=== PATIENT | female | born 2005 | race Two or more races ===

== ENCOUNTER 2024-05-18 20:14 | Emergency (ER) | payer OTHER ==
[~2024-05-18] VITALS: Ht 157.5 cm; Wt 110.2 kg
[2024-05-18] MEDS ORDERED: AZITHROMYCIN250 MG PO (21:53)
[2024-05-18] MEDS ORDERED: PEPCID20 MG PO (21:53)
[2024-05-18] MEDS ORDERED: MEDROLPACK PO (21:53)
[2024-05-18] MEDS ORDERED: ZOFRAN8 MG PO (21:53)
[2024-05-18] MEDS ORDERED: BUTALB/ACETAMINOPHEN/CAFFEINE 1 TAB TABLET PO ONE (22:00)
[2024-05-18] MEDS ORDERED: ONDANSETRON HCL 2 MG/ML VIAL IM ONE (22:00)
[2024-05-18] MEDS ORDERED: BENZONATATE 200 MG CAPSULE PO ONE (22:00)
== END 2024-05-18 22:18 | disposition home or self-care (01) ==
LOC: ER 20:16 → EMR PED 20:45 → ER 20:45
DX: J00 Acute nasopharyngitis [common cold] (principal)
CPT/HCPCS: 96372; 99282; J2405

== ENCOUNTER 2024-05-22 16:30 | Emergency (ER) | payer OTHER ==
[~2024-05-22] VITALS: Ht 157.5 cm; Wt 110.2 kg
[~2024-05-22 16:30] MED LIST: AZITHROMYCIN250 MG PO; MEDROLPACK PO; PEPCID20 MG PO; ZOFRAN8 MG PO
[2024-05-22 17:16] VITALS: BP 114/82; O2SAT 97
[2024-05-22] MEDS ORDERED: ACETAMINOPHEN 500 MG GEL..CAP PO ONE (19:15)
[2024-05-22] MEDS ORDERED: GUAIFENESIN 200 MG/10 ML BLIST.PACK PO ONE (19:30)
[2024-05-22] MEDS ORDERED: BENZONATATE 100 MG CAPSULE PO ONE (19:30)
[2024-05-22] MEDS ORDERED: KETOROLAC TROMETHAMINE 30 MG VIAL IM ONE (19:30)
[2024-05-22] MEDS ORDERED: OSELTAMIVIR PHOSPHATE 75 MG CAPSULE PO ONE (21:15)
== END 2024-05-22 21:34 | disposition home or self-care (01) ==
LOC: ER 16:32
DX: B34.9 Viral infection, unspecified (principal); R05.9 Cough, unspecified; Z20.822 Contact with and (suspected) exposure to COVID-19

== ENCOUNTER 2024-09-17 08:07 | Emergency (ER) | payer OTHER ==
[~2024-09-17] VITALS: Ht 160 cm; Wt 111.1 kg
== END 2024-09-17 09:09 | disposition home or self-care (01) ==
LOC: ER 08:09
DX: T16.2XXA Foreign body in left ear, initial encounter (principal)

== ENCOUNTER 2024-11-05 10:09 | Emergency (ER) | payer OTHER ==
[~2024-11-05] VITALS: Ht 162.6 cm; Wt 104.3 kg
[2024-11-05] MEDS ORDERED: MAXITROL EYE DRO5 ML OP (12:15)
== END 2024-11-05 13:07 | disposition home or self-care (01) ==
LOC: ER 10:09
DX: H00.016 Hordeolum externum left eye, unspecified eyelid (principal)